=== PATIENT | female | born 1945 | race Caucasian/White ===

== ENCOUNTER 2016-04-16 10:50 | Day surgery (SDC) | payer MEDICARE ==
--- NOTE | 2016-04-09 15:28 | PCM.ANEPRE ---
Anesthesia Pre-Op Review Reason for Review: hx of stated "coding" during anes, surgery Anesthesia Recommendations: Proceed with Procedure Additional Comments 70y F scheduled for podiatric surgery on 04/16. Pt reports h/o "coding" with prior surgery. A review of the record seems to indicate that she had a vaso- vagal episode in pre-op that responded appropriately to trendelenburg and atropine. Went on to have the scheduled surgery later in the day. Has subsequently undergone other surgeries without complication. Has had an extensive cardiac w/u which was negative. I suspect she will be fine for this surgery. No further w/u necessary at this point. Re-eval on DOS. Nader Cobian MD Apr 09, 2016 15:28
[~2016-04-16] VITALS: Ht 170.2 cm; Wt 77.5 kg
[2016-04-16] VITALS (9 sets, daily range): BP systolic 113–129; BP diastolic 57–75; PULSE 62–90; RESP 10–21; O2SAT 96–100
--- NOTE | 2016-04-16 06:51 | PCM.HPANE ---
Patient Data Surgeon Admitting Provider: Attending Provider:Sam Coulter DPM Primary Care Physician:Dmitry King MD Other Provider:Meghann Muñozingham Anesthesia Reason for Visit Right Foot Anterior Tibial Tendonosis Ht/WT & BMI Height (Feet): 5 Height (Inches): 7 Weight (Kilograms): 47.62 Body Mass Index 16.00 Allergies Coded Allergies: Sulfa (Sulfonamide Antibiotics) (Verified Allergy, Intermediate, HIVES, RASH, 06/14/14) Past Anesthesia History Anesthesia History: Denies:: Abnormal Airway, Anesthesia Reactions, Difficult Intubation, Fam Anesthesia Reaction, Fam Malignant Hypertherm, Malignant Hyperthermia Diabetes History Hx Diabetes?: No MRSA MRSA: No Medications No Active Prescriptions or Reported Meds History History of ENT Problems?: Yes HEENT History: Positive for:: TMJ (grinds, wears nightguard) Denies:: Abnormal Airway Cataracts Difficult Intubation Dysphagia Glaucoma Hearing Problem Sinus Problem Hx of Heart Problems?: Yes Cardiovascular History: Denies:: AICD Hypertension Pacemaker Valvular Heart Disease Other Cardiac History: cardiac problem 2007- prior to surgery "went out" (was not heart)- stopped breathing- had full cardiac work up after surgery negative study, post op at home same thing occurred - sent to ED . Has had 5 subsequent surgery with no issues cardiac Hx of Respiratory Problem?: No Respiratory History: Denies:: Asthma COPD Emphysema Oxygen Administration Pneumonia Tuberculosis Use of C-PAP Machine (past hx of, no longer uses) Use of Inhalers / NEBS Hx Neurologic Problems?: No Neurological History: Denies:: CVA Dementia Headaches (past hx of, not currently ) Multiple Sclerosis Parkinson's Disease Seizures TIA Hx of GI Problems?: No Gastrointestinal History: Denies:: Cirrhosis Diverticulitis Gall Bladder Disease Gastroesphageal Reflux Gastrointestinal Bleeding Heartburn Hepatitis Hiatal Hernia Liver Disease Rectal Bleeding Hx of Problems?: No Genitourinary History: Denies:: Kidney Stones Urinary Tract Infection Female Hx: Denies:: Currently Problems with Breasts? (benign lumpectomy) Skin History: Denies:: History Skin Disorders? Pressure Ulcers Hx Musculoskeletal Problems?: Yes Musculoskeletal History: Positive for:: Degenerative Joint Joint Replacement (bilateral hips, bilateral knees) Musculoskeletal Trauma (right foot current admission problem) Osteoarthritis Denies:: Back Injury Fibromyalgia Hx of Psycho/Social Problems?: No Psycho Social History: Denies:: Anxiety Hx Depression Hx Surgeries?: Yes (BILAT KNEES, BILAT HIPS, BILAT SHOULDERS, BILAT THUMBS, OOPH, APPY) Hx Any Other Health Problems?: Yes Other History: Denies:: Cancer Thyroid Disease History Blood Transfusions: Denies:: Accept Blood Products? Blood Transfusions Hx Diabetes: No Hx Alcohol Use: YesAlcoholic Drinks Per Day: a glass or two monthly, if that Hx Substance Use: No Smoking Status: Former Smoker Have You Smoked inLast 12 mo: No Stop/Bang S-Snoring: Do You Snore Loudly: No T-Tired: feel tired, fatigued: No O-Obsered: Observed not breath: No P-Blood Pressure: treated: No B- Body Mass Index > 35 kg/m2: No A- Age over 50: Yes N- Neck Large Circumference: No G- Gender Male: No BERNARDA Total Score: 1 Risk Assessment Category Category 1A: Patient has history of documented sleep apnea, and HAS NOT received any narcotic, sedative or anesthesia administration during this stay. Category 1B: Patient has history of documented sleep apnea, and HAS received any narcotic , sedative or anesthesia administration during this stay Category 2: Patient has SUSPECTED Obstructive Sleep Apnea, and HAS received any narcotic , sedative or anesthesia administration during this stay. Category 3: Patient has SUSPECTED Obstructive Sleep Apnea and HAS NOT received narcotic, sedative or anesthesia administration during this stay. Category 4: Outpatient in Procedural Areas with known sleep apnea or who screen positive for High Risk via the STOP/BANG questionnaire. Plan Impression Sarkis Gonzalez MD Apr 16, 2016 06:51 Sarkis Gonzalez MD Apr 16, 2016 06:51
[~2016-04-16 10:50] MED LIST: Lactated Ringer's 1,000 ML IV SCH
[2016-04-16] MEDS ORDERED: Lidocaine PF 1% 30 mL Inj ONE (10:51)
[2016-04-16] MEDS ORDERED: Ondansetron 2 mg/mL 2 mL Inj ONE (10:51)
[2016-04-16] MEDS ORDERED: fentaNYL-PF 50 mCg/mL 2 mL Inj ONE (10:51)
[2016-04-16] MEDS ORDERED: Propofol 10,000 mCg/mL 20 mL Inj ONE (10:51)
[2016-04-16] MEDS ORDERED: Phenylephrine/NS-PF 100 mCg/mL 5 mL Syringe IVPUSH ONE (10:51)
[2016-04-16] MEDS ORDERED: EPHEDrine/NS 5 mg/mL 5 mL Syringe ONE (10:51)
[2016-04-16] MEDS ORDERED: Lactated Ringer's 1,000 ML IV SCH (12:54)
[2016-04-16] MEDS ORDERED: Lactated Ringer's 500 ML IV PRN (12:54)
--- NOTE | 2016-04-16 12:54 | PCM.HPANE ---
Patient Data Date of Service: Apr 16, 2016 Surgeon Admitting Provider: Attending Provider:Sam Coulter DPM Primary Care Physician:Dmitry King MD Other Provider:Liz Muñoz Anesthesia Reason for Visit Right Foot Anterior Tibial Tendonosis Ht/WT & BMI Height (Feet): 5 Height (Inches): 7 Weight (Kilograms): 77.5 Body Mass Index 26.00 Allergies Coded Allergies: Sulfa (Sulfonamide Antibiotics) (Verified Allergy, Intermediate, HIVES, RASH, 06/14/14) Past Anesthesia History Anesthesia History: Positive for:: Anesthesia Reactions (hx of vasovagal respons), Denies:: Abnormal Airway, Difficult Intubation, Fam Anesthesia Reaction, Fam Malignant Hypertherm, Malignant Hyperthermia Diabetes History Hx Diabetes?: No MRSA MRSA: No Medications Home Meds Incl Beta Chandan: No No Active Prescriptions or Reported Meds History History of ENT Problems?: Yes HEENT History: Positive for:: TMJ (grinds, wears nightguard) Denies:: Abnormal Airway Cataracts Difficult Intubation Dysphagia Glaucoma Hearing Problem Sinus Problem Hx of Heart Problems?: Yes Cardiovascular History: Denies:: AICD Hypertension Pacemaker Valvular Heart Disease Other Cardiac History: cardiac problem 2007- prior to surgery "went out" (was not heart)- stopped breathing- had full cardiac work up after surgery negative study, post op at home same thing occurred - sent to ED . Has had 5 subsequent surgery with no issues cardiac Hx of Respiratory Problem?: No Respiratory History: Denies:: Asthma COPD Emphysema Oxygen Administration Pneumonia Tuberculosis Use of C-PAP Machine (past hx of, no longer uses) Use of Inhalers / NEBS Hx Neurologic Problems?: No Neurological History: Denies:: CVA Dementia Headaches (past hx of, not currently ) Multiple Sclerosis Parkinson's Disease Seizures TIA Hx of GI Problems?: No Gastrointestinal History: Denies:: Cirrhosis Diverticulitis Gall Bladder Disease Gastroesphageal Reflux Gastrointestinal Bleeding Heartburn Hepatitis Hiatal Hernia Liver Disease Rectal Bleeding Hx of Problems?: No Genitourinary History: Denies:: Kidney Stones Urinary Tract Infection Female Hx: Denies:: Currently (POST MENOPAUSAL) Problems with Breasts? (benign lumpectomy) Skin History: Denies:: History Skin Disorders? Pressure Ulcers Hx Musculoskeletal Problems?: Yes Musculoskeletal History: Positive for:: Degenerative Joint Joint Replacement (bilateral hips, bilateral knees) Musculoskeletal Trauma (right foot current admission problem) Osteoarthritis Denies:: Back Injury Fibromyalgia Hx of Psycho/Social Problems?: No Psycho Social History: Denies:: Anxiety Hx Depression Hx Surgeries?: Yes (BILAT KNEES, BILAT HIPS, BILAT SHOULDERS, BILAT THUMBS, OOPH, APPY) Hx Any Other Health Problems?: Yes Other History: Denies:: Cancer Thyroid Disease History Blood Transfusions: Denies:: Accept Blood Products? Blood Transfusions Hx Diabetes: No Hx Alcohol Use: YesAlcoholic Drinks Per Day: a glass or two monthly, if that Hx Substance Use: No Smoking Status: Former Smoker Have You Smoked inLast 12 mo: No Stop/Bang S-Snoring: Do You Snore Loudly: No T-Tired: feel tired, fatigued: No O-Obsered: Observed not breath: No P-Blood Pressure: treated: No B- Body Mass Index > 35 kg/m2: No A- Age over 50: Yes N- Neck Large Circumference: No G- Gender Male: No BERNARDA Total Score: 1 BERNARDA Risk Assessment: Low Risk, <3 Yes Risk Assessment Category Category 1A: Patient has history of documented sleep apnea, and HAS NOT received any narcotic, sedative or anesthesia administration during this stay. Category 1B: Patient has history of documented sleep apnea, and HAS received any narcotic , sedative or anesthesia administration during this stay Category 2: Patient has SUSPECTED Obstructive Sleep Apnea, and HAS received any narcotic , sedative or anesthesia administration during this stay. Category 3: Patient has SUSPECTED Obstructive Sleep Apnea and HAS NOT received narcotic, sedative or anesthesia administration during this stay. Category 4: Outpatient in Procedural Areas with known sleep apnea or who screen positive for High Risk via the STOP/BANG questionnaire. Exam Exam Vital Signs Vital Signs Date Time Temp Pulse Resp B/P Pulse Ox O2 Delivery O2 Flow Rate FiO2 04/16/16 11:18 36.2 62 16 128/65 100 Room Air General Appearance: Alert, Oriented X3, Cooperative HEENT/AIRWAY: MP 2, Neck Movement (Full), Mouth Opening (Wide) Lungs: Clear to Auscultation, Normal Air Movement Heart: Regular Rate/Rhythm, Normal S1, Normal S2 Plan Impression Patient chart reviewed, patient interviewed and anesthestic plan with risks, benefits, and alternatives discussed, and informed consent obtained. NPO Status: 04/16/16 0800 ASA Physical Status: ASA1 Normal Healthy Anesthetic Plan: GA Bene/Risks/Altern/Consents: Yes HP Complete Prior to Induction: Yes Thomas Talavera MD Apr 16, 2016 12:10
[2016-04-16] MEDS ORDERED: Phenylephrine 10,000 mCg/mL Inj IVPUSH PRN (12:55)
[2016-04-16] MEDS ORDERED: MetoCLOpramide 5 mg/mL 2 mL Inj IVPUSH PRN (12:55)
[2016-04-16] MEDS ORDERED: HYDROmorphone 1 mg/mL Inj IVPUSH PRN (12:55)
[2016-04-16] MEDS ORDERED: Dexamethasone 4 mg/mL Inj IVPUSH PRN (12:55)
[2016-04-16] MEDS ORDERED: EPHEDrine Sulfate 50 mg/mL Inj IVPUSH PRN (12:55)
[2016-04-16] MEDS ORDERED: hydrALAZINE 20 mg/mL Inj IVPUSH PRN (12:55)
[2016-04-16] MEDS ORDERED: Atropine 0.4 mg/mL Inj IVPUSH PRN (12:55)
[2016-04-16] MEDS ORDERED: fentaNYL-PF 50 mCg/mL 2 mL Inj IVPUSH PRN (12:55)
[2016-04-16] MEDS ORDERED: Labetalol 5 mg/mL 4 mL Inj IV PRN (12:55)
[2016-04-16] MEDS ORDERED: Ondansetron 2 mg/mL 2 mL Inj IVPUSH PRN (12:55)
[2016-04-16] MEDS ORDERED: Lactated Ringer's 1,000 ML IV ONE (13:00)
[2016-04-16] MEDS ORDERED: Bupivacaine 0.5%/EPI 50 mL Inj INFILTRATE ONE (13:10)
[2016-04-16] MEDS ORDERED: Dexamethasone 4 mg/mL Inj INTRARTICU ONE (14:05)
--- NOTE | 2016-04-16 14:41 | PCM.ANEP1 ---
Post Anesthesia Phase 1 PACU Phase 1 Assessment Date of Service: Apr 16, 2016 Vital Signs PACU T 37.7, HR 78, RR 21, O2 100% 10L, BP 116/68 Vital Signs Date Time Temp Pulse Resp B/P Pulse Ox O2 Delivery O2 Flow Rate FiO2 04/16/16 14:39 37.7 90 18 118/70 100 Simple Mask 8 04/16/16 11:18 36.2 62 16 128/65 100 Room Air Lungs: Clear to Auscultation, Normal Air Movement Thomas Talavera MD Apr 16, 2016 14:41
--- NOTE | 2016-04-16 14:44 | PCM.ANEP2 ---
Post Anesthesia Evaluation ASA/CMS Post Anesthesia Date of Service: Apr 16, 2016 VS in Patient's Normal Range?: Yes Resp Stable; Airway Patent?: Yes CV Function & Hydration Stable: Yes Mental Status Recovered?: Yes Pain control Satisfactory?: Yes N/V Control Satisfactory?: Yes Thomas Talavera MD Apr 16, 2016 14:44
--- NOTE | 2016-04-16 14:54 | PCM.SURGPO ---
Immediate Operative Note Date of Surgery: Apr 16, 2016 Pre Operative Diagnosis Anterior tibial tendon tear right Ganglion cyst right foot Post Operative Diagnosis Same Procedure Repair anterior tibial tendon right excision ganglion cyst right Surgeon and Under Cutting Machine Operator Surgeon: Sam Coulter DPM Assistants: None Findings partial tear degeneration anterior tibial tendon Cyst (ganglion) Complications There were no periprocedural complications identified. Surgical Specimen Removed: Yes Specimen sent to Pathology: Yes Surgical Specimen description: Cyst Anterior tibial tendon Anesthetic Administered: GA Grafts, Implants: None Output, Estimated Blood Loss: 5 Blood Admin during surgery: No Sam Coulter DPM Apr 16, 2016 14:54
--- NOTE | 2016-04-16 15:49 | OP ---
[address] [address] OPERATIVE REPORT PATIENT: LEEROY RAMOS : 1945 MR#: [id number] ADMIT: 04/16/2016 JOB ID: [id number] DATE OF SURGERY: 04/16/2016 SURGEON: Sam Coulter DPM. PREOPERATIVE DIAGNOSIS(ES): 1. Tear of the right anterior tibial tendon. 2. Ganglion cyst, right foot. POSTOPERATIVE DIAGNOSIS(ES): 1. Tear of the right anterior tibial tendon. 2. Ganglion cyst, right foot. OPERATION PERFORMED: 1. Repair of the inter-substance tear of the right anterior tibial tendon. 2. Excision of ganglion cyst, right foot. ANESTHESIA: General anesthetic. HEMOSTASIS: None. ESTIMATED BLOOD LOSS: Minimal. 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 MRI examination shows marked tendinopathy and also the presence of a ganglion cyst. After failure of conservative care and consideration of risks and benefits, the patient has elected to proceed with surgical repair of the tendon and removal of the ganglion cyst. DESCRIPTION OF PROCEDURE: The patient brought to the operating room and placed on the operating table in supine position. General anesthetic was administered. Following administration of general anesthesia, a pneumatic tourniquet was applied to the right thigh in case it was needed. The right foot and leg were then prepped and draped in the usual aseptic manner. Attention was directed to the anterior aspect of the right ankle, where a 14 cm linear incision was made over the anterior tibial tendon. This incision began proximal to the joint over the palpable tendon and extended distally across the ankle joint and ended roughly over the insertion of the anterior tibial tendon. The skin incision was deepened via sharp and blunt dissection, superficial vessels being ligated as needed. Vital structures identified and retracted. Upon reaching the level of the anterior tibial tendon and the extensor retinacula, there was noted to be marked synovitis of the tendon sheath. The tendon sheath was then opened proximally and there was quite a bit of yellowish clear fluid expressed from the tendon sheath. The tendon sheath was then opened along its course over the anterior tibial tendon. The more proximal portions of the anterior tibial tendon were normal in appearance. Distally the last 2 cm of the tendon track was noted to be edematous, nodular and degenerative. The tendon was mobilized and displaced medially. Immediately underneath the tendon there was noted to be what appeared to be an empty cyst-type structure. This was dissected free and sent for pathologic examination. This tendon was then retracted out of the way. Additional sharp and blunt dissection was carried out to the level of the osseous structures. The head of the talus and dorsal aspect of the navicular were identified. No additional ganglion cysts could be appreciated in this area. This area was examined both proximal, medial and lateral. Again, no fluctuant areas and no cysts were intact. Dissection was down to the capsular tissue. At this time it was felt that the cyst discovered at her tendon sheath was probably the cysts noted on MRI. At this time the distal portion of the tendon was opened. The degenerative portions of the tendon were debrided. Some of this was sent also for pathologic examination as a separate specimen. Less than 25% of the tendon had been debrided. It was not felt that a tendon graft jacket would be necessary or beneficial to the patient. The tendon was then repaired with 3-0 Vicryl with the knots being buried. The tendon sheath was then closed. Extensor retinaculum repaired with additional 3-0 Vicryl. The deep tissues were then approximated with 4-0 Vicryl. The skin was closed with 4-0 Prolene. Tincture of benzoin, Steri-Strips were then applied across the skin incision. Then, 30 cc of 0.5% Marcaine with epinephrine was infiltrated throughout the foot surgical area for postoperative analgesia. Then, 8 mg dexamethasone was infiltrated to control postoperative edema. Xeroform dressing and a dry sterile compressive dressing were applied to the ankle. The patient was then taken from the operating room to the PACU with vital signs stable, capillary refill time within normal limits in all digits. There were no apparent complications with surgery or anesthesia.
--- NOTE | 2016-04-19 16:39 | PATH ---
SURGICAL PATHOLOGY Attending Physician:Micaela Peña CASE STATUS: Signed Out PATIENT NAME: LEEROY RAMOS PID: [id number] : 1945 DATE COLLECTED:04/16/2016 00:00 SPECIMEN: 1: Synovium 2: Ganglion Cyst CLINICAL HISTORY: RIGHT FOOT ANTERIOR TIBIAL TENDONOSIS, GANGLION CYST 1). SYNOVIUM RIGHT ANTERIOR TIBIAL TENDON 2). GANGLION CYST RIGHT FOOT FINAL DIAGNOSIS: 1. Synovium Right Anterior Tibial Tendon: Synovial tissue with mild reactive changes. No evidence of neoplasia. 2. Ganglion Cyst, Right Foot: Benign fibrocartilaginous tissue. No evidence of malignancy. ICD10 M67.9 GROSS DESCRIPTION: The specimens are received in formalin, labeled with the patient's name, and sublabeled as the following: (1) right anterior tibial tendon synovium; (2) ganglion cyst right foot. (1) The specimen consists of a piece of kulkarni-white rubbery fibrous tissue with a rope-like structure (2.1 x 0.6 x 0.4 cm). Section code: (1A) tissue, serially sectioned. Specimen entirely submitted. (2) The specimen consists of a piece of bright white glistening friable tissue (2.1 x 0.8 x 0.4 cm). Section code: (2A) tissue. The specimen entirely submitted. 04/17/16 MICRO DESCRIPTION: Please see diagnosis. ICD-9 CODES: CPT CODES: 1: 44438 2: 90034 Electronically Signed Out Lilian Ramirez MD [facility] [address], [place] [address] Technical component performed at [facility], [address] [place] [address] Ave[address], [place], [address]
== END 2016-04-16 23:59 | disposition home or self-care (01) ==
LOC: SAS 10:50
PROVIDERS: ATTEND Podiatrist
DX: M76.811 Anterior tibial syndrome, right leg (principal); S96.811A Strain of other specified muscles and tendons at ankle and foot level, right foot, initial encounter; M67.471 Ganglion, right ankle and foot; M19.90 Unspecified osteoarthritis, unspecified site; E78.5 Hyperlipidemia, unspecified; G47.33 Obstructive sleep apnea (adult) (pediatric); Z87.891 Personal history of nicotine dependence; Z79.82 Long term (current) use of aspirin
CPT/HCPCS: 28090; 28208; 88304; 88305; J0690; J1100; J2250; J2370; J2405; J3010; J7120